=== PATIENT | male | born 1965 | race Caucasian/White ===

== ENCOUNTER 2019-07-12 14:43 | Inpatient (IN) | payer OTHER ==
[2019-07-12] MEDS ORDERED: DIAZEPAM 5 MG/ML 2 ML INJ IVP STA (15:35)
[2019-07-12] MEDS ORDERED: SODIUM CHLORIDE 0.9% 1,000 ML IV STA (15:35)
[2019-07-12 15:59] LABS: Basophils % (A) 0 %; Eosinophils % (A) 1 %; HCT 43.5 % (39.0-53.0); HGB 14.9 gm/dL (13.0-17.5); Lymphocytes # (A) 0.9 k/uL (1.0-4.8); Lymphocytes % (A) 20 %; MCH 33.6 pg (25.0-35.0); MCHC 34.4 g/dL (31.0-37.0); MCV 97.9 fL (80.0-100.0); Mean Platelet Volume 7.8; Monocytes # (A) 0.3 k/uL (0-1.0); Monocytes % (A) 6 %; Neutrophils # (A) 3.3 k/uL (1.3-7.7); Neutrophils % (A) 71 %; RBC 4.44 m/uL (4.30-5.90); RDW 12.7 % (11.5-15.5); WBC 4.6 k/uL (3.8-10.6)
--- NOTE | 2019-07-12 16:02 | ED ---
General Adult HPI - General Chief complaint: Psychiatric Symptoms Stated complaint: Drank 6 oz of rubbing alcohol Time Seen by Provider: 07/12/19 15:08 Source: patient Mode of arrival: wheelchair Limitations: no limitations - History of Present Illness Initial comments: Patient is a 53-year-old male presenting to the emergency department accompanied by his for alcohol withdrawal-type symptoms. states she is wanting to petition him. Patient has been detoxing from alcohol for the past few days and does have a prescription for Librium. Patient's states she gave him a tablet this morning but found the patient in the closet 3 different times today drinking rubbing alcohol. Patient states he drank about 2 ounces of rubbing alcohol. Patient denies having suicidal thoughts however is afraid that if he goes home he will drink himself to . Patient is complaining of nausea and shaking. Patient doesn't want to talk a whole lot. There are no other complaints at this time. Patient has no other pertinent past medical history, no surgeries. On arrival to the ER, patient is tachycardia at 134, rest of vitals are normal. - Related Data Home Medications Medication Instructions Recorded Confirmed Selvin/Mag(Unknown Dose) 0.5 tab PO DAILY 07/12/19 07/12/19 Vitamin B Complex 1 cap PO DAILY 07/12/19 07/12/19 Vitamin D3(Unknown Dose) 1 tab PO DAILY 07/12/19 07/12/19 Allergies Allergy/AdvReac Type Severity Reaction Status Date / Time No Known Allergies Allergy Verified 07/12/19 19:00 Review of Systems ROS Statement: Those systems with pertinent positive or pertinent negative responses have been documented in the HPI. ROS Other: All systems not noted in ROS Statement are negative. Past Medical History Past Medical History: No Reported History History of Any Multi-Drug Resistant Organisms: None Reported Past Surgical History: No Surgical Hx Reported Past Psychological History: No Psychological Hx Reported Smoking Status: Current every day smoker Past Alcohol Use History: Abuse, Daily, Heavy Past Drug Use History: None Reported - Past Family History Father Family Medical History: No Reported History Mother Family Medical History: No Reported History General Exam - General Exam Comments Initial Comments: GENERAL: Patient appears slightly disheveled, eyes are closed, mild tremors. Answering questions. HEAD: Atraumatic, normocephalic. EYES: Pupils equal round and reactive to light, extraocular movements intact, sclera anicteric, conjunctiva are normal. ENT: Nares patent, oropharynx clear without exudates. Moist mucous membranes. NECK: Normal range of motion, supple without lymphadenopathy or JVD. LUNGS: Breath sounds clear to auscultation bilaterally and equal. No wheezes rales or rhonchi. HEART: Tachycardia rate and rhythm without murmurs, rubs or gallops. ABDOMEN: Soft, nontender, normoactive bowel sounds. No guarding, no rebound. No masses appreciated. : Deferred EXTREMITIES: Normal range of motion, no pitting or edema. No clubbing or cyanosis. NEUROLOGICAL: Cranial nerves II through XII grossly intact. Patient is alert, oriented to self and place. Believes it's 2009. PSYCH: Flat affect SKIN: Warm, Dry, normal turgor, no rashes or lesions noted. Limitations: no limitations Course Vital Signs 07/12/19 07/12/19 07/12/19 15:02 15:42 16:00 Temperature 97.8 F Pulse Rate 134 H 115 H Respiratory 22 18 18 Rate Blood Pressure 126/82 130/74 O2 Sat by Pulse 97 95 94 L Oximetry 07/12/19 07/12/19 16:30 19:02 Temperature Pulse Rate 115 H 112 H Respiratory 18 20 Rate Blood Pressure 127/75 139/82 O2 Sat by Pulse 97 Oximetry EKG Findings - EKG Comments: EKG Findings:: Ventricular rate 112, OR interval 128, QTC 502. Sinus tach, right BBB, abnormal EKG. Medical Decision Making - Medical Decision Making Patient is a 53-year-old male presenting with alcoholic withdrawal symptoms. is wanting him to be petitioned. Patient has mild tremors, slightly tachycardia upon arrival. Lab work shows no acute abnormalities. Liver enzymes are slightly elevated. Alcohol is 12. Initial BAT was normal. Patient is alert, oriented to self and place however believes it is 2009. Patient will be admitted for alcohol withdrawal. Patient except by Dr. Feldman. Case discussed with Dr. Webb. - Lab Data Result diagrams: 07/12/19 15:52 07/12/19 15:52 Disposition Clinical Impression: Alcohol withdrawal delirium Disposition: ADMITTED IP TO THIS HOSP Condition: Good Is patient prescribed a controlled substance at d/c from ED?: No Decision Date: 07/12/19 Decision Time: 17:46
[2019-07-12 16:12] LABS: ALT 148 U/L (21-72); AST 174 U/L (17-59); African American GFR (CKD) >90 (>60 ml/min/1.73 sqM); Albumin 4.4 g/dL (3.5-5.0); Alcohol 12 mg/dL; Alkaline Phosphatase 73 U/L (38-126); Amylase 42 U/L (30-110); Anion Gap 10 mmol/L; Blood Urea Nitrogen 9 mg/dL (9-20); Calcium 9.2 mg/dL (8.4-10.2); Carbon Dioxide 29 mmol/L (22-30); Chloride 100 mmol/L (98-107); Glucose 171 mg/dL (74-99); Magnesium 1.5 mg/dL (1.6-2.3); Non-African American GFR(CKD) >90 (>60 ml/min/1.73 sqM); Potassium 3.2 mmol/L (3.5-5.1); Sodium 139 mmol/L (137-145); Total Bilirubin 0.8 mg/dL (0.2-1.3); Total Protein 6.6 g/dL (6.3-8.2)
[2019-07-12] MEDS ORDERED: LORazepam 2 MG/ML INJ IV STA (16:42)
[2019-07-12 16:49] LABS: Platelet Count 90 k/uL (150-450)
[2019-07-12] MEDS ORDERED: THIAMINE 100 MG TAB PO SCH (17:30)
[2019-07-12] MEDS ORDERED: THIAMINE 100 MG/ML 2 ML VIAL IM STA (17:46)
[2019-07-12] MEDS ORDERED: LORazepam 2 MG/ML INJ IV PRN ×2 (17:46)
[2019-07-12] MEDS ORDERED: NALOXONE 0.4 MG/ML 1 ML VIAL IV PRN (17:48)
[2019-07-12] MEDS ORDERED: ACETAMINOPHEN TAB 325 MG TAB PO PRN (17:48)
[2019-07-12 18:33] LABS: Amphetamine Screen,Urine Not Detected (NotDetected); Barbiturate Screen,Urine Not Detected (NotDetected); Benzodiazepines Screen,Urine Not Detected (NotDetected); Cocaine Screen,Urine Not Detected (NotDetected); Methadone Screen, Urine Not Detected (NotDetected); Opiate Screen,Urine Not Detected (NotDetected); Oxycodone Screen, Urine Not Detected (NotDetected); Phencyclidine Screen,Urine Not Detected (NotDetected); Tricyclic Antidepressant,Urine Not Detected (NotDetected); Urn Cannabinoid Scrn Not Detected (NotDetected)
[2019-07-12] MEDS: LORazepam 2 MG/ML INJ IV PRN (18:59)
[2019-07-12] MEDS: SODIUM CHLORIDE 0.9% 1,000 ML IV SCH (19:03)
[2019-07-12] MEDS ORDERED: MELATONIN 3 MG TABLET PO PRN (19:45)
[2019-07-12] MEDS ORDERED: traMADol 50 MG TAB PO PRN (19:45)
--- NOTE | 2019-07-12 19:50 | P.HPIM ---
History of Present Illness H&P Date: 07/12/19 Chief Complaint: intoxication Patient is a 53-year-old male with a past medical history of significant alcohol abuse and drinking approximately 1 pint in 2 beers daily, tobacco abuse, and depression who presented to the emergency department at the direction that his secondary to alcohol withdrawal possible suicidal ideation. Apparently the filled out a petition in the ER she feels he will drink himself to if he is released. She also reported that the patient was found in his closet drinking isopropyl alcohol today. On arrival to the ER he was tachycardic with a pulse of 134. Laboratory analysis showed a platelet count of 90, potassium 3.2, anion gap of 10, carbon dioxide 29, AST 178, ALP 148, and magnesium 1.5. Serum alcohol level was normal at 12. He was found to be in acute alcohol withdrawal. He was given a dose of Valium and to 1 mg doses of Ativan. He was admitted for further monitoring of his alcohol withdrawal with impending delirium tremens. Patient seen and examined at bedside in the emergency department. He is asking to go home. He states that he was recently at [facility] and started having alcohol withdrawal. He reports he received IV Ativan and then was discharged home on Librium. He states he used LIBRIUM. He continued to have some alcohol withdrawal with nausea, tremors, sweating, and agitation. His brought him in today after apparently he was drinking isopropyl alcohol. He reports that he drinks approximately 2 ounces isopropyl alcohol. He states it was try to help with his alcohol withdrawal denies suicidal ideation or significant depression at this point in time. However patient has a hard time focusing and is constantly thrashing about in bed. He does not appear to be a reliable historian. I explained to him why I though he needed to stay for wrosening alcohol withdrawal and concerns for developement of cardiovascular compromise he first agreed.THne 1 minute later he was trying to get out of bed looking for his and stating he was going home. Review of Systems Pertinent positives and negatives as discussed in HPI, a complete review of systems was performed and all other systems are negative. 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 - Past Family History Father Family Medical History: No Reported History Mother Family Medical History: No Reported History Medications and Allergies Home Medications Medication Instructions Recorded Confirmed Type Selvin/Mag(Unknown Dose) 0.5 tab PO DAILY 07/12/19 07/12/19 History Vitamin B Complex 1 cap PO DAILY 07/12/19 07/12/19 History Vitamin D3(Unknown Dose) 1 tab PO DAILY 07/12/19 07/12/19 History Allergies Allergy/AdvReac Type Severity Reaction Status Date / Time No Known Allergies Allergy Verified 07/12/19 19:00 Physical Exam Osteopathic Statement: *. No significant issues noted on an osteopathic structural exam other than those noted in the History and Physical/Consult. Vitals: Vital Signs Temp Pulse Resp BP Pulse Ox 07/12/19 19:02 112 H 20 139/82 97 07/12/19 16:30 115 H 18 127/75 07/12/19 16:00 115 H 18 130/74 94 L 07/12/19 15:42 18 95 07/12/19 15:02 97.8 F 134 H 22 126/82 97 Intake and Output 07/12/19 07/12/19 07/12/19 06:59 14:59 22:59 Other: Weight 74.843 kg General: Ill-appearing, moderate distress, disheveled, appears at stated age, normal weight Derm: no unusual rashes/lesions no unusual ecchymoses, warm, dry Head: atraumatic, normocephalic, symmetric Eyes: EOMI, no lid lag, anicteric sclera, pupils equal round reactive to light ENT: Nose and ears atraumatic, no thrush, no pharyngeal erythema Neck: No thyromegaly, no cervical lymphadenopathy, trachea midline, supple Mouth: no lip lesion, mucus membranes dry Cardiovascular: S1S2 tachy, no murmur, positive posterior tibial pulse bilateral, no edema, capillary refill less than 2 seconds Lungs: Decreased bs bilateral, no rhonchi, no rales , no accessory muscle use Abdominal: soft, nontender to palpation, no guarding, no appreciable organomegaly, normal bowel sounds Ext: no gross muscle atrophy, muscle strength 5 out of 5 in all 4 extremities grossly, no contractures, Neuro: CN II-XI grossly intact, light touch intact all 4 extremities, finger to nose within normal limits, Psych: Alert, oriented, anxious, not clear thinking Results CBC & Chem 7: 07/12/19 15:52 07/12/19 15:52 Labs: Abnormal Lab Results - Last 24 Hours (Table) 07/12/19 07/12/19 07/12/19 Range/Units 15:52 15:52 15:52 Plt Count 90 L (150-450) k/uL Lymphocytes # 0.9 L (1.0-4.8) k/uL Potassium 3.2 L (3.5-5.1) mmol/L Glucose 171 H (74-99) mg/dL Osmolality 342 H* (280-301) mosm/kg Magnesium 1.5 L (1.6-2.3) mg/dL AST 174 H (17-59) U/L ALT 148 H (21-72) U/L Thrombosis Risk Factor Assmnt - DVT/VTE Prophylaxis DVT/VTE Prophylaxis: Mechanical Prophylaxis ordered Assessment and Plan Assessment: Acute isopropyl alcohol ingestion - IVF - PPI - Osmolar gap 50 - frequent neurochecks - asked nursing to open case with poison control Acute Alcohol withdrawal with impending DTs, Failed outpatient treatment - CIWA, thiamine, foliac acid - Social work consult Suicidal ideation - Sitter - Psych consult Transaminitis with thrombocytopenia - suspect due to ETOH use - Repeat CMP in AM - If continues to elevated will proceed with US/ Hepatitis profile Hypokalemia and hypomagnesemia - replace and recheck in AM Tobacco abuse - cessation - nicotine replacement The patient is admitted with an anticipated greater than 2 midnight stay for evaluation of isopropyl ingestion. Surrogate decision-maker: CODE STATUS:not clear enough thinking to make a decision DVT prophylaxis: SCDS Discussed with: Patient, ED physician, nursing Anticipated discharge date: 1-[address]: MHU vs home vs rehab A total of 60 minutes was spent on the care of this complex patient more than 50% of the time was spent in counseling and care coordination.
[2019-07-12] MEDS: PANTOPRAZOLE 40 MG/10 ML VIAL IVP SCH (21:41)
[2019-07-12] MEDS: MAGNESIUM SULFATE-D5W PMX 1 GM in DEXTROSE/WATER 1 100ML.BAG IVPB SCH ×2 (21:41→23:47)
[2019-07-12] MEDS: POTASSIUM CHLORIDE 10 MEQ in WATER FOR INJECTION 1 100ML.BAG IVPB SCH ×2 (21:42→23:48)
[2019-07-12 22:18] LABS: Acetaminophen <10.0 ug/mL; Salicylate <1.0 mg/dL
[2019-07-13] MEDS: MAGNESIUM SULFATE-D5W PMX 1 GM in DEXTROSE/WATER 1 100ML.BAG IVPB SCH ×2 (00:55→02:04)
[2019-07-13] MEDS: POTASSIUM CHLORIDE 10 MEQ in WATER FOR INJECTION 1 100ML.BAG IVPB SCH ×2 (00:56→02:04)
[2019-07-13] MEDS: LORazepam 2 MG/ML INJ IV PRN (02:08)
[2019-07-13] MEDS: THIAMINE 100 MG TAB PO SCH ×2 (06:24→17:25)
[2019-07-13 07:52] LABS: HGB 14.3 gm/dL (13.0-17.5); MCH 34.5 pg (25.0-35.0); MCHC 34.8 g/dL (31.0-37.0); MCV 99.1 fL (80.0-100.0); Mean Platelet Volume 6.9; RBC 4.14 m/uL (4.30-5.90); RDW 12.8 % (11.5-15.5)
[2019-07-13 07:58] LABS: Platelet Count 96 k/uL (150-450)
[2019-07-13 08:01] LABS: ALT 123 U/L (21-72); AST 115 U/L (17-59); African American GFR (CKD) >90 (>60 ml/min/1.73 sqM); Albumin 3.8 g/dL (3.5-5.0); Alkaline Phosphatase 55 U/L (38-126); Anion Gap 7 mmol/L; Blood Urea Nitrogen 4 mg/dL (9-20); Calcium 8.1 mg/dL (8.4-10.2); Carbon Dioxide 27 mmol/L (22-30); Chloride 106 mmol/L (98-107); Glucose 114 mg/dL (74-99); Magnesium 2.4 mg/dL (1.6-2.3); Non-African American GFR(CKD) >90 (>60 ml/min/1.73 sqM); Potassium 3.6 mmol/L (3.5-5.1); Sodium 140 mmol/L (137-145); Total Bilirubin 0.8 mg/dL (0.2-1.3); Total Protein 6.3 g/dL (6.3-8.2)
[2019-07-13] MEDS: PANTOPRAZOLE 40 MG/10 ML VIAL IVP SCH (08:25)
[2019-07-13] MEDS: SODIUM CHLORIDE 0.9% 1,000 ML IV SCH ×2 (08:25→17:25)
[2019-07-13] MEDS ORDERED: NICOTINE 21MG/24HR PATCH TRANSDERM SCH (09:00)
--- NOTE | 2019-07-13 09:11 | P.PN ---
Progress Note - Text Progress Note Date: 07/13/19 If no additional doses of IV Ativan required before this afternoon will be medically stable for discharge.
[2019-07-13 14:52] LABS: Amylase 39 U/L (30-110)
--- NOTE | 2019-07-13 15:45 | P.CN ---
Psychiatric Consult - . Consult date: 07/13/19 Consult:: IDENTIFYING DATA: The patient is a 54-year-old male who has a history of an alcohol use disorder. He is currently unemployed, has no income and is living at his ex-'s home HISTORY OF PRESENT ILLNESS: He stated that his brought him to the hospital. She completed a petition that read "statement I just want to and others. Drinking rubbing alcohol." I reviewed the medical record and interviewed the patient. He admitted that he had relapsed to alcohol and during an argument with "his " he made the statement that he wanted to . However, he denied that he made a statement with the intent to end his life. He specifically denied having suicidal ideation, plan or intent. He was distressed by his continued alcohol use and the fact that he lost his most recent job because he was intoxicated at work. He feels depressed and helpless over his continued alcohol use. He feels worthless because he is unable to maintain gainful employment due to his alcohol use problems. He denied feeling hopeless. He denied sustained feelings depression associated with anhedonia, anergy, pervasive guilt, etc. He denied history of suicide attempts or gestures. He denied history of self-harm. I spoke with his ex-. She was very frustrated over this situation. She stated he has a history of alcoholism and relapsed 3 weeks ago. They were 2 years ago but because he has no income and no where else to live he has been living with her except for a period of about 9 months last year when he is in a residential alcohol rehabilitation program in [facility]. 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 The police brought him home about 2 weeks ago from work because his blood alcohol level was 0.27. His has been in multiple rehabilitation program and currently has a counselor at the [facility] outpatient [facility] in [place]. She has been urging him to return to [facility] for residential rehabilitation but he had so far refused. Last week he went to [facility] and obtained a prescription for Librium for an outpatient detox. She meanwhile solicit the assistance of his substance abuse counselor and the mobile crisis team. She arranged to get him admitted to [facility] on 07/16/2019. Yesterday during an argument he made the statement that he wished that he would . She came home yesterday and found that he had been drinking rubbing alcohol. She called his counselor and arrange for a emergency admission to [facility] yesterday at 2 PM. She stated that he was denied admission because of his medical condition and referred here for medical care. PAST PSYCHIATRIC HISTORY: He denied history of psychiatric treatment or admission to psychiatric hospital.. PAST MEDICAL HISTORY: None. ALLERGIES: No known ALLERGIES. SUBSTANCE USE HISTORY: He has over 20 year history of alcohol use problems with multiple substance abuse admissions. He estimates that he has attempted at least 500 NA and AA meetings in his lifetime. He has had 6 admissions to [facility]. He has a counselor at the [facility] outpatient clinic. He meets with his counselor 2-3 times per week. He denied history of withdrawal delirium or withdrawal seizures. SOCIAL HISTORY: He is currently homeless because his does not want him to return to her home. He has no income. He alleges one DUI citation. 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 MENTAL STATUS EXAM: He presented as a middle-aged tremulous male who had difficulty concentrating and attending to the interview. He was tremulous and irritable. He had a distressed facial expression. He was alert and oriented to person, place and time. He was restless but not agitated. His speech was nonspontaneous. He showed difficulty with word finding and concentrating on the interview. He was anxious and moderately irritable. He denied suicidal ideation, wishes or homicidal ideation. He expressed some feelings of hopelessness and helplessness. He ruminated about the circumstances that led to this hospitalization. Did not express ideas reference, paranoid ideation or delusions. His thinking was concrete and he showed poverty of content of speech. He perseverated on his alcohol use problems. He denied hallucinations and did not appear to be responding to internal stimuli. IMPRESSIONS: He is a 54-year-old male with a history of a severe alcohol use disorder. He presented to Hospital at the behest of his ex- because he relapsed to alcohol about 3 weeks ago. As a result of the relapse he is lost his job and cannot return to her home. She became distressed when he refused to go to residential rehabilitation and began making statements about dying. During our interview he was in apparent alcohol withdrawal and expressed frustration and helplessness over his alcohol use. He denied that he made the suicidal statements with the intent to end his life. He denied cartwright icidal plan or intent and denied a history of suicide attempts. He does not meet judicial criteria for admission to the psychiatric unit at this time. He should be referred for residential substance abuse treatment PLAN: He does not require inpatient psychiatric treatment. Discontinue one-to-one supervision. Monitor patient for signs and symptoms of withdrawal delirium. Consult social work to refer him to [facility] for residential substance abuse treatment.. 07/13/19 15:39 07/13/19 15:40
[2019-07-13] MEDS ORDERED: NICOTINE POLACRILEX 2 MG GUM BUCCAL PRN (16:21)
--- NOTE | 2019-07-13 19:56 | P.PN ---
Subjective Progress Note Date: 07/13/19 Principal diagnosis: intoxication Patient is a 53-year-old male with a past medical history of significant alcohol abuse and drinking approximately 1 pint in 2 beers daily, tobacco abuse, and depression who presented to the emergency department at the direction that his secondary to alcohol withdrawal possible suicidal ideation. Apparently the filled out a petition in the ER she feels he will drink himself to if he is released. She also reported that the patient was found in his closet drinking isopropyl alcohol today. On arrival to the ER he was tachycardic with a pulse of 134. Laboratory analysis showed a platelet count of 90, potassium 3.2, anion gap of 10, carbon dioxide 29, AST 178, ALP 148, and magnesium 1.5. Serum alcohol level was normal at 12. He was found to be in acute alcohol withdrawal. He was given a dose of Valium and to 1 mg doses of Ativan. He was admitted for further monitoring of his alcohol withdrawal w ith impending delirium tremens. He was found to have an osmolar gap secondary to his isopropyl alcohol intoxication. History of treated with supportive care. On the morning of 07/13 he is much more awake and alert and not tremulous. He was seen by psychiatry and determined not to require inpatient psychiatric hospitalization. He continued to have symptoms of alcohol withdrawal. Apparently he has been living with his ex- who states he cannot come back in the house after discharge. Patient seen and examined at bedside. He denies any headaches, nausea, vomiting, abdominal pain, or tremors. Patient is alert and oriented 3 but still shows impulsive behaviors. After we discussed him continuing to stay in the hospital he tries to get out of bed and leave. He wants have a cigarette but refuses nicotine patch or gum. Objective - Vital Signs Vital signs: Vital Signs Temp 98.3 F 07/13/19 08:00 Pulse 99 07/13/19 16:00 Resp 16 07/13/19 04:00 BP 133/76 07/13/19 16:00 Pulse Ox 95 07/13/19 16:00 Intake & Output 07/13/19 07/13/19 07/14/19 06:59 18:59 06:59 Weight 74.843 kg Other: Voiding Method Toilet # Voids 1 2 - Exam General: non toxic, no distress, appears at stated age, disheveled Derm: warm, dry Head: atraumatic, normocephalic, symmetric Eyes: EOMI, no lid lag, anicteric sclera Mouth: no lip lesion, mucus membranes moist, poor dentition Cardiovascular: S1S2 reg, no murmur, positive posterior tibial pulse bilateral, Lungs: CTA bilateral, no rhonchi, no rales , no accessory muscle use Abdominal: soft, nontender to palpation, no guarding, no appreciable organomegaly Ext: no gross muscle atrophy, no edema, no contractures Neuro: CN II-XI grossly intact, no focal neuro deficits Psych: Alert, oriented, impulsive, unable to retain information presented to him accurately - Labs CBC & Chem 7: 07/13/19 06:38 12 06:38 Labs: Abnormal Lab Results - Last 24 Hours (Table) 07/13/19 07/13/19 Range/Units 06:38 06:38 RBC 4.14 L (4.30-5.90) m/uL Plt Count 96 L (150-450) k/uL BUN 4 L (9-20) mg/dL Glucose 114 H (74-99) mg/dL Calcium 8.1 L (8.4-10.2) mg/dL Magnesium 2.4 H (1.6-2.3) mg/dL AST 115 H (17-59) U/L ALT 123 H (21-72) U/L Assessment and Plan Assessment: Acute Alcohol withdrawal with impending DTs, Failed outpatient treatment - CIWA, thiamine, foliac acid - Social work recs. Attempted to discharge to inpatient substance abuse. Acute isopropyl alcohol ingestion, improving Transaminitis with thrombocytopenia, improving - suspect due to ETOH use - Repeat CMP in AM Tobacco abuse - cessation - nicotine replacement Social stressors -Per social work patient is actually living with his ex-. Has been unable to keep her job. Ex- will not allow him back in the house. We'll either need to go to the long-term or inpatient substance abuse rehab. Suicidal ideation, ruled out by psychiatry and deemed no need for safety council director. Hypokalemia and hypomagnesemia, resolved DVT prophylaxis: SCDS Discussed with: Patient, Social work, nursing Anticipated discharge date: 1-[address]: home vs rehab A total of 60 minutes was spent on the care of this complex patient more than 50% of the time was spent in counseling and care coordination. `
[2019-07-13 20:10] VITALS: RESP 18
[2019-07-14 06:30] VITALS: TEMP 96
[2019-07-14] MEDS: THIAMINE 100 MG TAB PO SCH (06:32)
[2019-07-14] MEDS: SODIUM CHLORIDE 0.9% 1,000 ML IV SCH ×2 (06:32→12:18)
[2019-07-14 06:42] LABS: HCT 39.7 % (39.0-53.0); HGB 13.4 gm/dL (13.0-17.5); MCH 34.2 pg (25.0-35.0); MCHC 33.8 g/dL (31.0-37.0); MCV 101.2 fL (80.0-100.0); Mean Platelet Volume 8.4; RBC 3.92 m/uL (4.30-5.90); RDW 12.8 % (11.5-15.5); WBC 4.2 k/uL (3.8-10.6)
[2019-07-14 06:46] LABS: Platelet Count 79 k/uL (150-450)
[2019-07-14 06:53] LABS: ALT 100 U/L (21-72); AST 88 U/L (17-59); African American GFR (CKD) >90 (>60 ml/min/1.73 sqM); Albumin 3.4 g/dL (3.5-5.0); Alkaline Phosphatase 42 U/L (38-126); Anion Gap 5 mmol/L; Blood Urea Nitrogen 3 mg/dL (9-20); Calcium 8.6 mg/dL (8.4-10.2); Carbon Dioxide 26 mmol/L (22-30); Chloride 109 mmol/L (98-107); Glucose 115 mg/dL (74-99); Non-African American GFR(CKD) >90 (>60 ml/min/1.73 sqM); Potassium 4.4 mmol/L (3.5-5.1); Sodium 140 mmol/L (137-145); Total Bilirubin 0.8 mg/dL (0.2-1.3); Total Protein 5.6 g/dL (6.3-8.2)
[2019-07-14] MEDS ORDERED: PANTOPRAZOLE 40 MG TABLET PO SCH (09:00)
[2019-07-14 11:04] VITALS: BP 134/86; PULSE 76
--- NOTE | 2019-07-14 17:50 | P.DS ---
Providers Date of admission: 07/12/19 15:07 Expected date of discharge: 07/14/19 Attending physician: Shannon Latham DO Consults: 07/12/19 19:47 Consult Physician Routine Consulting Provider: Mik Jessica Reason/Comments: Suicidal intent Do you want consulting provider notified?: Yes Primary care physician: [facility] Course: Discharge Diagnosis: Acute Alcohol withdrawal with impending DTs, Failed outpatient treatment Acute isopropyl alcohol ingestion Transaminitis with thrombocytopenia, improving Tobacco abuse Social stressors Suicidal ideation, ruled out by psychiatry Hypokalemia and hypomagnesemia, resolved Hospital Course: Patient is a 53-year-old male with a past medical history of significant alcohol abuse and drinking approximately 1 pint in 2 beers daily, tobacco abuse, and depression [facility] secondary to alcohol withdrawal possible suicidal ideation. Apparently the filled out a petition in the ER she feels he will drink himself to if he is released. She also reported that the patient was found in his closet drinking isopropyl alcohol today. On arrival to the ER he was tachycardic with a pulse of 134. Laboratory analysis showed a platelet count of 90, potassium 3.2, anion gap of 10, carbon dioxide 29, AST 178, ALP 148, and magnesium 1.5. Serum alcohol level was normal at 12. He was found to be in acute alcohol withdrawal. He was given a dose of Valium and 2, 1 mg doses of Ativan. He was admitted for further monitoring of his alcohol withdrawal with impending delirium tremens. He was found to have an osmolar gap secondary to his isopropyl alcohol ingestion. He did well with supportive treatment. On the morning of 07/13 he is much more awake and alert and not tremulous. He was seen by psychiatry and determined not to require inpatient psychiatric hospitalization. He continued to have symptoms of alcohol withdrawal. He did well with Librium therapy alone for 24 hours. He was determined stable for discharge from the hospital for complete inpatient alcohol rehabilitation. This will be determined facility in [place]. He was subsequently discharged home, his ex- will be taking him to a facility in [place]. Patient seen and examined at bedside. Vital signs reviewed and stable. General: non toxic, no distress, appears at stated age Derm: warm, dry Head: atraumatic, normocephalic, symmetric Eyes: EOMI, no lid lag, anicteric sclera Mouth: no lip lesion, mucus membranes moist Cardiovascular: S1S2 reg, no murmur, positive posterior tibial pulse bilateral, Lungs: CTA bilateral, no rhonchi, no rales , no accessory muscle use Abdominal: soft, nontender to palpation, no guarding, no appreciable organomegaly Ext: no gross muscle atrophy, no edema, no contractures Neuro: CN II-XI grossly intact, no focal neuro deficits Psych: Alert, oriented,anxious A total of 35 minutes of time were spent preparing this complex discharge summary . Patient Condition at Discharge: Stable Plan - Discharge Summary Discharge Rx Participant: No New Discharge Prescriptions: New chlordiazePOXIDE HCl [Librium] 20 mg PO TID cap Pantoprazole [Protonix] 40 mg PO DAILY #30 tablet. Thiamine [Vitamin B-1] 100 mg PO BID-W/MEALS #60 tab Continue Vitamin B Complex 1 cap PO DAILY Discontinued Vitamin D3(Unknown Dose) 1 tab PO DAILY Selvin/Mag(Unknown Dose) 0.5 tab PO DAILY Discharge Medication List Vitamin B Complex 1 cap PO DAILY 07/12/19 [History] Pantoprazole [Protonix] 40 mg PO DAILY #30 tablet. 07/14/19 [Rx] Thiamine [Vitamin B-1] 100 mg PO BID-W/MEALS #60 tab 07/14/19 [Rx] chlordiazePOXIDE HCl [Librium] 20 mg PO TID cap 07/14/19 [Rx] Follow up Appointment(s)/Referral(s): [facility] - 07/25/19 5:30 pm (WednesdayJuly 25 at 5:30) Patient Instructions/Handouts: Abuse of Alcohol (DC) Activity/Diet/Wound Care/Special Instructions: Activity: as tolerated Diet: regular Special Instructions: Abstain from Alcohol Discharge Disposition: DC/TRNS REHB FAC/UNT W/PND R
--- NOTE | 2019-07-19 07:32 | CDI ---
Documentation Clarification Form Date: 07/19/19 From: Elena Matos Phone: If you have a question about this query, please contact Concetta Mejias, Cant Hooker at [phone] between 8am and 5pm. Admit Date: 07/12/19 Discharge Date: 07/14/19 Patient Name: Salvatore Langley Visit Number: [id number] ATTENTION: The Clinical Documentation Specialists (CDI) and [facility] Coding Staff appreciate your assistance in clarifying documentation. Please respond to the clarification below the line at the bottom and electronically sign. The CDI & [facility] Coding staff will review the response and follow-up if needed. Please note: Queries are made part of the Legal Health Record. If you have any questions, please contact the author of this message via ITS. Dear Dr. Shannon Latham Documentation and the location in the medical record included alcohol withdrawal with impending DTs documented in the ED note, H&P, discharge summary and progress notes. History of alcohol abuse is documented in the H&P, your progress note on 07/13 and in the discharge summary. History/Risk Factors: Heavy, daily alcohol use Clinical Indicators: Mild tremors, slightly tachycardic, nausea, sweating, agitation, depression, suicidal Labs: AST 174, ALT 148, Potassium 3.2, Magnesium 1.5, Platelets 90, Blood alcohol 12 Treatment: CIWA protocol, Thiamine IM and PO In your professional opinion, can you please clarify if the above clinical indicators and treatment signify any of the following? Alcohol dependence Alcohol abuse Other, please specify Unable to determine Alcohol abuse MTDD
== END 2019-07-14 12:42 | disposition home or self-care (01) | DRG 897 ==
LOC: EC 14:43 → SUPCPDRO 14:43 → 3SCARD 15:07
PROVIDERS: ADMIT Internal Medicine; ATTEND Internal Medicine
DX: F10.10 Alcohol abuse, uncomplicated (principal); D69.6 Thrombocytopenia, unspecified; E83.42 Hypomagnesemia; E87.6 Hypokalemia; F17.200 Nicotine dependence, unspecified, uncomplicated; F32.9 Major depressive disorder, single episode, unspecified; R74.0 Nonspecific elevation of levels of transaminase and lactic acid dehydrogenase [LDH]; R45.87 Impulsiveness; Y90.0 Blood alcohol level of less than 20 mg/100 ml
CPT/HCPCS: 36415; 80053; 80306; 80320; 80329; 82075; 82150; 83520; 83690; 83735; 83930; 85025; 85027; 93005; 96361; 96372; 96374; 96375; 96376; 99285

== ENCOUNTER → 2020-09-17 | Outpatient (CLI) | payer OTHER | END | disposition home or self-care (01) | LOC: LABPAT 11:20 | PROVIDERS: ATTEND Surgery | DX: Z20.822 Contact with and (suspected) exposure to COVID-19 (principal) ==

== ENCOUNTER 2020-09-24 07:14 | Day surgery (SDC) | payer OTHER ==
[2020-09-20 11:55] VITALS: BMI 24.3
[~2020-09-24 07:14] MED LIST: DEXAMETHASONE SOD PHOSPHATE 4 MG/ML 1 ML VIAL IV ONE; HEPARIN SODIUM,PORCINE 5,000 UNIT/ML 1 ML VIAL SQ PRN; HYDROmorphone 0.5 MG/0.5 ML SYRINGE IVP PRN; LACTATED RINGERS 1,000 ML IV SCH; LIDOCAINE 1% (10MG/ML) FOR IV START INTRADERMA PRN; MIDAZOLAM 2 MG/2 ML VIAL IV PRN; ONDANSETRON 4 MG/2 ML VIAL IVP ONE; fentaNYL (PF) 50 MCG/ML 2 ML AMP IV PRN
[2020-09-24 07:49] VITALS: TEMP 98.5
[2020-09-24 08:11] LABS: HCT 38.8 % (39.0-53.0); HGB 13.5 gm/dL (13.0-17.5); MCH 34.4 pg (25.0-35.0); MCHC 34.7 g/dL (31.0-37.0); MCV 99.1 fL (80.0-100.0); Mean Platelet Volume 8.1; Platelet Count 132 k/uL (150-450); RBC 3.92 m/uL (4.30-5.90); RDW 12.6 % (11.5-15.5); WBC 6.9 k/uL (3.8-10.6)
[2020-09-24] MEDS ORDERED: NEOSTIGMINE 1 MG/ML 10 ML VIAL ONE (08:56)
[2020-09-24] MEDS ORDERED: DEXAMETHASONE SOD PHOSPHATE 10 MG/ML 1 ML VIAL ONE (08:56)
[2020-09-24] MEDS ORDERED: PROPOFOL 10 MG/ML 20 ML VIAL IV ONE (08:56)
[2020-09-24] MEDS ORDERED: MIDAZOLAM 2 MG/2 ML VIAL ONE (08:56)
[2020-09-24] MEDS ORDERED: ROCURONIUM 10 MG/ML (5 ML VIAL) IV ONE (08:56)
[2020-09-24] MEDS ORDERED: GLYCOPYRROLATE 0.2 MG/ML 2 ML VIAL ONE (08:56)
[2020-09-24] MEDS ORDERED: SUCCINYLCHOLINE CHLORIDE 100 MG/5 ML SYR IV ONE (08:56)
[2020-09-24] MEDS ORDERED: ROPIVACAINE 5 MG/ML 30 ML VIAL ONE (08:56)
[2020-09-24] MEDS ORDERED: fentaNYL (PF) 50 MCG/ML 2 ML AMP ONE (08:56)
[2020-09-24] MEDS ORDERED: LIDOCAINE 1% INJ 10MG/ML (20 ML MDV) ONE (08:56)
[2020-09-24] MEDS ORDERED: LIDOCAINE 1%-EPI 1:100,000 20 ML VIAL SQ ONE ×2 (10:29)
[2020-09-24] MEDS ORDERED: LACTATED RINGERS 1,000 ML IV ONE (11:13)
--- NOTE | 2020-09-24 11:36 | P.OP ---
Date of Procedure: 09/24/20 Preoperative Diagnosis: Right inguinal hernia Postoperative Diagnosis: Bilateral inguinal hernia, direct Procedure(s) Performed: Robotic bilateral inguinal hernia repair with mesh placement Anesthesia: ANU Surgeon: Pierre Roth Pathology: none sent Condition: stable Disposition: same day Indications for Procedure: 54-year-old male presents today for elective right inguinal hernia repair. He is noted to have some discomfort in the right groin that led him to seek surgical repair. Plan was for possible bilateral based on findings from the scope. Patient was explained the risks, benefits and alternatives to the procedure and did provide consent prior to attending the operating suite. Operative Findings: Bilateral direct inguinal hernia Description of Procedure: The patient was brought to the operating suite and placed in supine position on the operating table. General endotracheal anesthesia was induced. There was difficulty placing the endotracheal tube, however anesthesia was able to place this under direct camera guidance. Arms were then tacked to the sides bilaterally and all pressure points were padded. SCDs were also in place in his bilateral lower extremities and working throughout the entire case. Preoperative antibiotics were given prior to the incision. A timeout was performed with all team members in agreement with correct patient, procedure and location. A super umbilical incision was made approximately 20 cm superior to the pubic symphysis. The abdomen was then entered with a 8 mm trocar. Pneumoperitoneum was achieved. 2 additional incisions were made approximately 11 cm lateral to the super umbilical incision and 8 mm trochars were then placed. The patient was placed in Trendelenburg position on the hernia sites were clearly visualized bilaterally. Both were noted to be direct inguinal hernias. It was also pretty clear that the bladder was quite full. Patient stated that he did urinate prior to the procedure, however based on the size of the bladder and size of inguinal hernias, it was decided it would be safer to place a Sanchez catheter at this time. Sanchez catheter was unable to be placed by staff and urology was asked to place the catheter. Urology did perform a dilation of the meatus to be able to place catheter. They did also request that catheter remain in place after the surgery. The robot was then docked appropriately. Incision was then made just lateral to the medial umbilical ligament on the left side with the monopolar scissors and the peritoneal flap was created and was taken down towards Garrett's ligament. The flap was then extended laterally. Attention was then turned to the direct internal hernia. The sac was then freed from the surrounding structures and preserving the cord structures. At this point the direct hernia was reduced. Once the entire space was appropriately dissected out, attention was turned to the right side. Incision was then made just lateral to the medial umbilical ligament on the right side with the monopolar scissors and the peritoneal flap was created and was taken down towards Garrett's ligament. The flap was then extended laterally. Attention was then turned to the direct internal hernia. The sac was then freed from the surrounding structures and preserving the cord structures. Once the entire space was appropriately dissected out, we brought the laparoscopic anatomic parietex progrip mesh and unrolled it over the hernia sites. Once appropriately in place, the peritoneal flaps were closed using running 20 be lock sutures. Once this was completed, we removed all robotic instruments and undocked the robot. The super umbilical incision fascia was closed with 0 Vicryl suture using a Jameson [place] device. This was done under laparoscopic guidance. All skin incisions were then closed with 4-0 Vicryl suture. The patient was awakened and taken to recovery unit in stable condition.
[2020-09-24 11:48] VITALS: RESP 16
[2020-09-24 13:19] VITALS: BP 126/85; PULSE 79
--- NOTE | 2020-09-24 13:32 | P.ANPRN ---
Procedure Note - Anesthesia - Nerve Block Performed Right Erector Spinae Single Time Out Performed: Yes Date of Procedure: 09/24/20 Procedure Start Time: Procedure Stop Time: Location of Patient: PreOp Indication: Acute Post-Operative Pain, Requested by Surgeon Sedation Type: Sedate with meaningful contact maintained Preparation: Sterile Prep Position: Prone Needle Types: Pajunk Needle Gauge: 21 Ultrasound used to visualize needle placement: Yes Ultrasound used to observe medication spread: Yes Blood Aspirated: No Pain Paresthesia on Injection Noted: No Resistance on Injection: Normal Image Stored and Saved: Yes Events: Uneventful and Well Tolerated (ropi .25% 30cc at l1)
--- NOTE | 2020-09-24 17:09 | P.GSCN ---
History of Present Illness Consult date: 09/24/20 Reason for Consult: Urinary retention/ Meatal stenosis History of present illness: Mr Langley is an 54 yo male who is undergoing robotic inguinal hernia repair, patient was advised to void prior to surgery. intraoperatively it was noticed that the bladder was fairly distended. Attempted abel placement was unsuccessful due to meatal stenosis. Patient was intubated on evaluation, but no know urological hx Review of Systems ROS unobtainable: due to endotracheal tube Past Medical History Past Medical History: No Reported History Additional Past Medical History / Comment(s): inguinal hernia History of Any Multi-Drug Resistant Organisms: None Reported Past Surgical History: Orthopedic Surgery Additional Past Surgical History / Comment(s): fibroid tumor foot surgery and varicocele repair. fibroid tumor on neck removed Past Anesthesia/Blood Transfusion Reactions: No Reported Reaction Smoking Status: Current every day smoker - Past Family History Father Family Medical History: No Reported History Mother Family Medical History: No Reported History Medications and Allergies Home Medications Medication Instructions Recorded Confirmed Type Vitamin B Complex 1 cap PO DAILY 07/12/19 09/24/20 History Cholecalciferol [Vitamin D3 (25 125 mcg PO DAILY 09/20/20 09/24/20 History Mcg = 1000 Iu)] Potassium Magnesium Bromalin 1 tab PO DAILY 09/20/20 09/24/20 History HYDROcodone/APAP 5-325MG [[place] 1 tab PO Q6HR PRN 3 Days #12 tab 09/24/20 Rx 5-325] Ibuprofen [Motrin] 800 mg PO Q8H PRN #24 tab 09/24/20 Rx Allergies Allergy/AdvReac Type Severity Reaction Status Date / Time No Known Allergies Allergy Verified 09/24/20 07:45 Surgical - Exam Vital Signs Temp Pulse Resp BP Pulse Ox 98.5 F 74 16 117/76 97 09/24/20 07:39 09/24/20 07:39 09/24/20 07:39 09/24/20 07:39 09/24/20 07:39 - Genitourinary circumcised phallus, (+ meatal stenosis) testicles present Results - Labs 09/24/20 07:57 Abnormal Lab Results - Last 24 Hours (Table) 09/24/20 Range/Units 07:57 RBC 3.92 L (4.30-5.90) m/uL Hct 38.8 L (39.0-53.0) % Plt Count 132 L (150-450) k/uL Assessment and Plan Assessment: Mr Langley is an 54 yo male who is undergoing robotic inguinal hernia repair, patient was advised to void prior to surgery. intraoperatively it was noticed that the bladder was fairly distended. Attempted abel placement was unsuccessful due to meatal stenosis. -Meatal stricture was dilated using [place] Male sounds, a 14 Fr abel was placed. -Keep abel in place for 3 days, -F/U in Urology clinic in 1-2 weeks for UA/PVR
--- NOTE | 2020-09-24 17:12 | P.PCN ---
Date of Procedure: 09/24/20 Preoperative Diagnosis: Meatal stenosis Postoperative Diagnosis: same Procedure(s) Performed: dilation of meatal stricture and abel placement Implants: same Anesthesia: DAPHNEYA Surgeon: Jose Antonio Campo Estimated Blood Loss (ml): 1 Indications for Procedure: 54 yo male with hx of meatal stricture, Urology was consulted intraoperatively for abel placement Description of Procedure: The penis was prepped in sterile fashion, the meatal stenosis was dilated to 18 Fr using the [place] Male sounds. A 14 Fr abel was placed with return of clear urine. Abel balloon inflated with 10 mL. Patient tolerated procedure well
== END 2020-09-24 14:04 | disposition home or self-care (01) ==
LOC: OR 07:14
PROVIDERS: ATTEND Surgery
DX: K40.20 Bilateral inguinal hernia, without obstruction or gangrene, not specified as recurrent (principal); N35.911 Unspecified urethral stricture, male, meatal; J45.909 Unspecified asthma, uncomplicated; F17.210 Nicotine dependence, cigarettes, uncomplicated; Z98.890 Other specified postprocedural states
CPT/HCPCS: 64461; 76942; 85027; 49650; C1781; J2250; J1644; J1100 ×2; J2710; J0690; J2405; J2001; J3010; J2795; J0330; J2704; J1170

== ENCOUNTER 2021-04-11 20:42 | Emergency (ER) | payer OTHER ==
[2021-04-11 20:47] VITALS: BP 127/75; PULSE 117; RESP 18; TEMP 98.5
--- NOTE | 2021-04-11 23:03 | CT ---
EXAMINATION TYPE: CT brain natalieine wo con DATE OF EXAM: 04/11/2021 COMPARISON: 02/09/2016 HISTORY: ETOH Headache. Neck pain. CT DLP: 1267.8 mGycm Automated exposure control for dose reduction was used. Ventricles have normal size. There is no mass effect nor midline shift. There is no sign of intracran ial hemorrhage. The calvarium is intact. There is normal aeration of the mastoid sinuses. There is mu cosal thickening in the maxillary sinuses. There is some cerebral cortical atrophy. Cervical vertebra have normal alignment. There is spurring anteriorly at C5-6 and C4-5. Posterior mayr ments are intact. There is no compression fracture. IMPRESSION: Mild cerebral atrophy. No acute intracranial abnormality. Spondylotic changes in the lower cervical s pine. No fracture. No adverse change overall compared to old exam.
[2021-04-12] MEDS ORDERED: LORazepam 2 MG/ML INJ IM STA (00:21)
--- NOTE | 2021-04-12 01:46 | ED ---
General Adult HPI - General Chief complaint: Alcohol Stated complaint: ETOH Time Seen by Provider: 04/11/21 20:59 Source: patient Mode of arrival: wheelchair - History of Present Illness Initial comments: 55 year-old male patient presents to the emergency department for evaluation of alcohol intoxication. Patient was dropped off. When he arrived he was confused and drowsy. He state he is fine. Denies any injuries. Does not remember how he got here. He denies any pain. Denies nausea or vomiting. Denies any drug use. States he has been drinking alcohol today. - Related Data Home Medications Medication Instructions Recorded Confirmed Vitamin B Complex 1 cap PO DAILY 07/12/19 09/24/20 Cholecalciferol [Vitamin D3 (25 125 mcg PO DAILY 09/20/20 09/24/20 Mcg = 1000 Iu)] Potassium Magnesium Bromalin 1 tab PO DAILY 09/20/20 09/24/20 Previous Rx's Medication Instructions Recorded HYDROcodone/APAP 5-325MG [[place] 1 tab PO Q6HR PRN 3 Days #12 tab 09/24/20 5-325] Ibuprofen [Motrin] 800 mg PO Q8H PRN #24 tab 09/24/20 Allergies Allergy/AdvReac Type Severity Reaction Status Date / Time No Known Allergies Allergy Verified 04/11/21 20:47 Review of Systems ROS Statement: Those systems with pertinent positive or pertinent negative responses have been documented in the HPI. ROS Other: All systems not noted in ROS Statement are negative. Past Medical History Past Medical History: No Reported History Additional Past Medical History / Comment(s): Alcoholism. History of Any Multi-Drug Resistant Organisms: None Reported Past Surgical History: No Surgical Hx Reported Additional Past Surgical History / Comment(s): foot surgery and varicocele repair Past Psychological History: No Psychological Hx Reported Smoking Status: Unknown if ever smoked Past Alcohol Use History: Unable to Obtain, Abuse, Daily, Heavy Past Drug Use History: Unable to Obtain - Past Family History Father Family Medical History: No Reported History Mother Family Medical History: No Reported History General Exam General appearance: in no apparent distress, appears intoxicated, other (This is a well developed, well nourished adult male patient in no acute distress. V/S temp 98.5, pulse 117, resp 18, BP 127/75, Pulse Ox 93% room air. ) Eye exam: Present: normal appearance, PERRL, EOMI. Absent: scleral icterus, conjunctival injection, periorbital swelling ENT exam: Present: normal exam, normal oropharynx, mucous membranes moist Respiratory exam: Present: normal lung sounds bilaterally. Absent: respiratory distress, wheezes, rales, rhonchi, stridor Cardiovascular Exam: Present: regular rate, normal rhythm, normal heart sounds. Absent: systolic murmur, diastolic murmur, rubs, gallop, clicks GI/Abdominal exam: Present: soft, normal bowel sounds. Absent: distended, tenderness, guarding, rebound, rigid Neurological exam: Present: oriented X3, CN II-XII intact. Absent: alert (drowsy) Psychiatric exam: Present: normal affect, normal mood Skin exam: Present: warm, dry, intact, normal color. Absent: rash Course Vital Signs 04/11/21 20:42 Temperature 98.5 F Pulse Rate 117 H Respiratory 18 Rate Blood Pressure 127/75 O2 Sat by Pulse 93 L Oximetry Medical Decision Making - Medical Decision Making 55 year-old male patient was dropped off. Obviously intoxicated upon arrival. Physical exam was unremarkable. Due to drowsiness and altered mental status did perform CT brain cspine which was negative. He was monitored until sober and discharged. My attending is Dr. Vences. - Radiology Data Radiology results: report reviewed, image reviewed CT brain and C-spine without contrast is obtained. Report was reviewed in its entirety. Impression by Dr. Chang shows mild cerebral atrophy. No acute intracranial abnormality. Spondylotic change some lower cervical spine. No fracture. No adverse change compared to old exam Disposition Clinical Impression: Alcohol intoxication Disposition: HOME SELF-CARE Condition: Good Instructions (If sedation given, give patient instructions): Alcohol Intoxication (ED) Is patient prescribed a controlled substance at d/c from ED?: No Referrals: None,Stated [Primary Care Provider] - 1-2 days
== END 2021-04-12 04:52 | disposition home or self-care (01) ==
LOC: EC 20:42
DX: F10.129 Alcohol abuse with intoxication, unspecified (principal); Z79.1 Long term (current) use of non-steroidal anti-inflammatories (NSAID); Y90.9 Presence of alcohol in blood, level not specified
CPT/HCPCS: 70450; 72125; 82075; 99284

== ENCOUNTER 2022-10-29 09:33 | Day surgery (SDC) | payer OTHER ==
[~2022-10-29 09:33] MED LIST changes: -DEXAMETHASONE SOD PHOSPHATE 4 MG/ML 1 ML VIAL IV ONE; -HEPARIN SODIUM,PORCINE 5,000 UNIT/ML 1 ML VIAL SQ PRN; -HYDROmorphone 0.5 MG/0.5 ML SYRINGE IVP PRN; -MIDAZOLAM 2 MG/2 ML VIAL IV PRN; -ONDANSETRON 4 MG/2 ML VIAL IVP ONE; -fentaNYL (PF) 50 MCG/ML 2 ML AMP IV PRN
[2022-10-29 09:52] VITALS: TEMP 97.8
[2022-10-29] MEDS ORDERED: GLUCAGON 1 MG/ML VIAL ONE (10:01)
[2022-10-29] MEDS ORDERED: PROPOFOL 10 MG/ML 20 ML VIAL IV ONE (10:01)
[2022-10-29] MEDS ORDERED: LIDOCAINE 2% INJ 20 MG/ML (2 ML VIAL) ONE (10:01)
--- NOTE | 2022-10-29 10:04 | P.GSHP ---
History of Present Illness H&P Date: 10/29/22 Chief Complaint: Screening colonoscopy This a 56-year-old male who presents today for screening colonoscopy. Patient denies a significant GI complaints. Past Medical History Past Medical History: Asthma, Eye Disorder, GERD/Reflux, Prostate Disorder Additional Past Medical History / Comment(s): PAST COLON TUBULAR ADENOMAS, BPH,CHILDHOOD ASTHMA, STARTING OF CATARACTS BILATERALLY History of Any Multi-Drug Resistant Organisms: None Reported Past Surgical History: Hernia Repair, Orthopedic Surgery Additional Past Surgical History / Comment(s): colonoscopies with tubular adenomas, L foot surgery/fibrous tumor, varicocele repair, bilateral abdominal hernia repair Past Anesthesia/Blood Transfusion Reactions: No Reported Reaction Additional Past Anesthesia/Blood Transfusion Reaction / Comment(s): Pt has never had a blood transfusion. Smoking Status: Current every day smoker - Past Family History Father Family Medical History: No Reported History Mother Family Medical History: No Reported History Medications and Allergies Home Medications Medication Instructions Recorded Confirmed Type Vitamin B Complex 1 cap PO QAM 07/12/19 10/27/22 History Ibuprofen [Motrin] 800 mg PO Q8H PRN #24 tab 09/24/20 10/27/22 Rx Ascorbic Acid [Vitamin C] 500 mg PO QAM 10/27/22 10/27/22 History Tamsulosin HCl [Flomax] 0.4 mg PO QAM 10/27/22 10/27/22 History Allergies Allergy/AdvReac Type Severity Reaction Status Date / Time No Known Allergies Allergy Verified 10/29/22 09:47 Surgical - Exam Vital Signs Temp Pulse Resp BP Pulse Ox 97.8 F 78 16 106/67 95 10/29/22 09:51 10/29/22 09:51 10/29/22 09:51 10/29/22 09:51 10/29/22 09:51 - General well developed, well nourished, no distress - Eyes PERRL - ENT normal pinna - Neck no masses - Respiratory normal expansion - Cardiovascular Rhythm: regular - Abdomen Abdomen: soft, non tender Assessment and Plan Assessment: We'll perform screening colonoscopy
--- NOTE | 2022-10-29 10:31 | P.OP ---
Date of Procedure: 10/29/22 Preoperative Diagnosis: Screening colonoscopy Postoperative Diagnosis: Normal colonoscopy Procedure(s) Performed: Colonoscopy Anesthesia: MAC Surgeon: Casper Erwin Pathology: none sent Condition: stable Disposition: PACU Description of Procedure: The patient's placed on the endoscopy table in the lateral position. He received IV sedation. Digital rectal exam performed. This revealed no ebonized. Flexible colonoscope was then placed patient anus and passed throughout the entire colon. The ileocecal valve was not visualized and tortuous valve. Several times made to make it into the valve power this wasn't possible. Scope withdrawn. The visualized ascending colon and transverse colon appeared normal. The descending and sigmoid colon appeared normal however the bowel was quite tortuous. Scope was brought back into the rectum and this appeared normal. Scope withdrawn for patient.
[2022-10-29 10:53] VITALS: BP 92/57; PULSE 62; RESP 18
== END 2022-10-29 11:39 | disposition home or self-care (01) ==
LOC: ORWHC2ENDO 09:33
PROVIDERS: ATTEND Surgery
DX: Z12.11 Encounter for screening for malignant neoplasm of colon (principal); J45.909 Unspecified asthma, uncomplicated; K21.9 Gastro-esophageal reflux disease without esophagitis; N40.0 Benign prostatic hyperplasia without lower urinary tract symptoms; F17.200 Nicotine dependence, unspecified, uncomplicated; Z86.010 Personal history of colon polyps; Z79.1 Long term (current) use of non-steroidal anti-inflammatories (NSAID); Z79.899 Other long term (current) drug therapy
CPT/HCPCS: 45378; J1610; J2704; J2001

== ENCOUNTER → 2023-02-04 | Outpatient (CLI) | payer OTHER ==
--- NOTE | 2023-02-04 17:34 | CTL ---
EXAMINATION TYPE: CT Low Dose Lung DATE OF EXAM ORDERED: 02/04/2023 HISTORY: Z87.891. Lung cancer screening CT DLP: 111.[address] CTDI: 2.7 mGy Automated exposure control for dose reduction was used. SCREENING VISIT: Follow-up COMPARISON: CT low-dose lung cancer screening 10/01/2022 TECHNIQUE: Low dose computed tomography scan was performed through the chest at 1 mm thick sections a nd reconstructed images in multiple planes at 1 mm and [address] DIAGNOSTIC QUALITY: Satisfactory FINDINGS: LUNG NODULES: Present, detailed below: A few scattered small nodules are seen bilaterally again. For reference there is a stable 5 mm periph eral left lower lobe nodule axial image 242. 2 stable 2 mm nodules seen in right middle lobe axial im age 212 and 211. No greater than 6 mm pulmonary nodules. No new or enlarging pulmonary nodules. LUNGS: COPD: Severity: Mild Fibrosis: Severity: Minimal Lymph nodes: No greater than 1.0 cm Other findings: None RIGHT PLEURAL SPACE: Effusion: None Calcification: None Thickening: None Pneumothorax: None LEFT PLEURAL SPACE: Effusion: None Calcification: None Thickening: None Pneumothorax: None HEART: Heart Size: Normal Coronary Calcification: Moderate to severe three-vessel Pericardial Effusion: None OTHER FINDINGS: Upper abdomen: Cholelithiasis. Bony thorax: None Supraclavicular region: None Other: Ectasia of the ascending thoracic aorta measuring up to 3.9 cm. IMPRESSION: Few small stable nodules measuring under 6 mm in size. No new or enlarging pulmonary nodu les. CT LUNG RAD AND CT CHEST RECOMMENDATION: Lung-Rad 2 Benign Appearance or Behavior: Continue annual sc reening with LDCT in 12 months. S Modifier (other clinically significant findings): None
== END | disposition home or self-care (01) ==
LOC: RADCTMAIN 16:47
PROVIDERS: ATTEND Family Medicine
DX: Z12.2 Encounter for screening for malignant neoplasm of respiratory organs (principal); R91.8 Other nonspecific abnormal finding of lung field; F17.210 Nicotine dependence, cigarettes, uncomplicated
CPT/HCPCS: 71271

== ENCOUNTER 2023-03-14 17:49 | Emergency (ER) | payer OTHER ==
[2023-03-14 17:55] VITALS: TEMP 98
[2023-03-14] MEDS ORDERED: SODIUM CHLORIDE 0.9% 1,000 ML IV STA (17:58)
--- NOTE | 2023-03-14 18:01 | ED ---
Dizziness HPI - General Chief Complaint: Dizziness Stated Complaint: chest pain Time Seen by Provider: 03/14/23 17:58 Source: patient, family, RN notes reviewed, old records reviewed Mode of arrival: ambulatory Limitations: no limitations - History of Present Illness Initial Comments: This is a 49-year-old male to the emergency department today for evaluation. Patient states his history of arrhythmia and similar symptoms as how he feels now. Lightheadedness dizziness and heart skipping a beat heart missing beats and positive. Patient has no fevers no cough no congestion of travel show sick contacts. Patient is having persistent symptoms on arrival to the ER tonight with history of similar symptoms in the past but never had persistent known d iagnosis of cause of the symptoms, he states that pain here in the ER is a first-time is been evaluated while he symptoms were ongoing MD Complaint: dizziness, lightheadedness, near syncope -: year(s) Timing: sudden onset Description: lightheadedness, near-syncope History of Same: Yes History of Trauma: No Severity: moderate Worsens With: nothing Associated Symptoms: denies other symptoms - Related Data Home Medications Medication Instructions Recorded Confirmed Tamsulosin HCl [Flomax] 0.4 mg PO HS 10/27/22 03/14/23 Aspirin EC [Ecotrin Low Dose] 81 mg PO HS 03/14/23 03/14/23 Atorvastatin [Lipitor] 20 mg PO HS 03/14/23 03/14/23 Allergies Allergy/AdvReac Type Severity Reaction Status Date / Time No Known Allergies Allergy Verified 03/14/23 20:43 Review of Systems ROS Statement: Those systems with pertinent positive or pertinent negative responses have been documented in the HPI. ROS Other: All systems not noted in ROS Statement are negative. Past Medical History Past Medical History: No Reported History Additional Past Medical History / Comment(s): Alcoholism. History of Any Multi-Drug Resistant Organisms: None Reported Past Surgical History: No Surgical Hx Reported, Hernia Repair Additional Past Surgical History / Comment(s): foot surgery and varicocele repair Past Psychological History: No Psychological Hx Reported Smoking Status: Unknown if ever smoked Past Alcohol Use History: Unable to Obtain, Abuse, Daily, Heavy Past Drug Use History: Unable to Obtain - Past Family History Father Family Medical History: No Reported History Mother Family Medical History: No Reported History General Exam Limitations: no limitations General appearance: alert, in no apparent distress, anxious Head exam: Present: atraumatic, normocephalic, normal inspection Eye exam: Present: normal appearance, PERRL, EOMI. Absent: scleral icterus, conjunctival injection, periorbital swelling ENT exam: Present: normal exam, mucous membranes moist Neck exam: Present: normal inspection. Absent: tenderness, meningismus, lymphadenopathy Respiratory exam: Present: normal lung sounds bilaterally. Absent: respiratory distress, wheezes, rales, rhonchi, stridor Cardiovascular Exam: Present: normal rhythm, bradycardia, normal heart sounds. Absent: systolic murmur, diastolic murmur, rubs, gallop, clicks GI/Abdominal exam: Present: soft, normal bowel sounds. Absent: distended, tenderness, guarding, rebound, rigid Extremities exam: Present: normal inspection, full ROM, normal capillary refill. Absent: tenderness, pedal edema, joint swelling, calf tenderness Back exam: Present: normal inspection Neurological exam: Present: alert, oriented X3, CN II-XII intact Psychiatric exam: Present: normal affect, normal mood Skin exam: Present: warm, dry, intact, normal color. Absent: rash Course Vital Signs 03/14/23 03/14/23 03/14/23 17:52 18:11 20:20 Temperature 98 F Pulse Rate 54 L 65 65 Respiratory 16 18 18 Rate Blood Pressure 128/71 117/75 O2 Sat by Pulse 97 99 Oximetry 03/14/23 21:02 Temperature Pulse Rate 69 Respiratory 18 Rate Blood Pressure 118/84 O2 Sat by Pulse 99 Oximetry - Reevaluation(s) Reevaluation #1: 03/14/23 20:16 Medical records reviewed Reevaluation #2: 03/14/23 20:16 Patient still with persistent PVCs here in the ER Reevaluation #3: 03/14/23 20:17 Patient informed results questions answered Reevaluation #4: 03/14/23 18:01 Was pt. sent in by a medical professional or institution (Dr. PA, SEAFOOD CLERK, urgent care, hospital, or long term...) When possible be specific @ -no Did you speak to anyone other than the patient for history (EMS, parent, family, police, friend...)? What history was obtained from this source @ -no Did you review nursing and triage notes (agree or disagree)? Why? @ -agree Are old charts reviewed (outside hosp., previous admission, EMS record, old EKG, old radiological studies, urgent care reports/EKG's, long term records)? Report findings @ -yes Differential Diagnosis (chest pain, altered mental status, abdominal pain women, abdominal pain men, vaginal bleeding, weakness, fever, dyspnea, syncope, headache, dizziness, GI bleed, back pain, seizure, CVA, palpatations, mental health, musculoskeletal)? @ -prior EKG interpreted by me (3pts min.). @ -yes X-rays interpreted by me (1pt min.). @ -yes CT interpreted by me (1pt min.). @ -no U/S interpreted by me (1pt. min.). @ -no What testing was considered but not performed or refused? (CT, X-rays, U/S, labs)? Why? @ -none What meds were considered but not given or refused? Why? @ -none Did you discuss the management of the patient with other professionals (professionals i.e. , PA, SEAFOOD CLERK, lab, RT, psych nurse, protective services social worker, log carrier operator, teacher, restoration officer, clinical case manager)? Give summary @ -no Was smoking cessation discussed for >3mins.? @ -no Was critical care preformed (if so, how long)? @ -no Were there social determinants of health that impacted care today? How? (Homelessness, low income, unemployed, alcoholism, drug addiction, transportation, low edu. Level, literacy, decrease access to med. care, half-way, rehab)? @ -none Was there de-escalation of care discussed even if they declined (Discuss DNR or withdrawal of care, Hospice)? DNR status @ -no What co-morbidities impacted this encounter? (DM, HTN, Smoking, COPD, CAD, Cancer, CVA, ARF, Chemo, Hep., AIDS, mental health diagnosis, sleep apnea, morbid obesity)? @ -none Was patient admitted / discharged? Hospital course, mention meds given and route, prescriptions, significant lab abnormalities, going to OR and other per tinent info. @ - 53 male to the emergency department for evaluation of palpitations heart skipping a beat patient feeling for some time. We do see that this appears to be symptomatic bradycardia here in the ER with multiple recurrent PVCs. Patient will be admitted for cardiology evaluation Admitted Undiagnosed new problem with uncertain prognosis? @ -no Drug Therapy requiring intensive monitoring for toxicity (Heparin, Nitro, Insulin, Cardizem)? @ -no Were any procedures done? @ -no Diagnosis/symptom? @ -Arrhythmia, bradycardia, PVCs Acute, or Chronic, or Acute on Chronic? @ -Acute Uncomplicated (without systemic symptoms) or Complicated (systemic symptoms)? @ -Complicated Side effects of treatment? @ -no Exacerbation, Progression, or Severe Exacerbation? @ -exacerbation Poses a threat to life or bodily function? How? (Chest pain, USA, [place], pneumonia, PE, COPD, DKA, ARF, appy, cholecystitis, CVA, Diverticulitis, Homicidal, Suicidal, threat to staff... and all critical care pts) @ -yes with arrhythmia Reevaluation #5: Differential Palpitations Ventricular arrhythmias, atrial arrhythmias, myocardial infarction, anemia, thyrotoxicosis, electrolyte imbalance, hypokalemia, pulmonary embolism, pulmonary disease, drugs, alcohol, anxiety, stress.... This is not meant to be an all-inclusive list. - Consultations Consultation #1: Spoke with [facility] were agrees to admit the patient EKG Findings - EKG Comments: EKG Findings:: EKG is sinus 78 [place] 139 [id number] QTc 410 - EKG Results: EKG: interpreted by [facility] Medical Decision Making - Medical Decision Making 53 male to the emergency department for evaluation of palpitations heart skipping a beat patient feeling for some time. We do see that this appears to be symptomatic bradycardia here in the ER with multiple recurrent PVCs. Patient will be admitted for cardiology evaluation - Lab Data Result diagrams: 03/14/23 18:14 03/14/23 19:18 Lab Results 03/14/23 03/14/23 03/14/23 Range/Units 18:14 18:14 18:14 WBC 6.6 (3.8-10.6) k/uL RBC 4.32 (4.30-5.90) m/uL Hgb 14.5 (13.0-17.5) gm/dL Hct 41.1 (39.0-53.0) % MCV 95.2 (80.0-100.0) fL MCH 33.5 (25.0-35.0) pg MCHC 35.2 (31.0-37.0) g/dL RDW 12.1 (11.5-15.5) % Plt Count 139 L (150-450) k/uL MPV 9.0 Neutrophils % 46 % Lymphocytes % 40 % Monocytes % 8 % Eosinophils % 4 % Basophils % 0 % Neutrophils # 3.1 (1.3-7.7) k/uL Lymphocytes # 2.6 (1.0-4.8) k/uL Monocytes # 0.5 (0-1.0) k/uL Eosinophils # 0.2 (0-0.7) k/uL Basophils # 0.0 (0-0.2) k/uL PT 10.0 (9.0-12.0) sec INR 0.9 (<1.2) APTT 20.7 L (22.0-30.0) sec Sodium (137-145) mmol/L Potassium (3.5-5.1) mmol/L Chloride (98-107) mmol/L Carbon Dioxide (22-30) mmol/L Anion Gap mmol/L BUN (9-20) mg/dL Creatinine (0.66-1.25) mg/dL Est GFR (CKD-EPI)AfAm (>60 ml/min/1.73 sqM) Est GFR (CKD-EPI)NonAf (>60 ml/min/1.73 sqM) Glucose (74-99) mg/dL Calcium (8.4-10.2) mg/dL Phosphorus (2.5-4.5) mg/dL Magnesium (1.6-2.3) mg/dL Total Bilirubin (0.2-1.3) mg/dL AST (17-59) U/L ALT (4-49) U/L Alkaline Phosphatase (38-126) U/L Troponin I <0.012 (0.000-0.034) ng/mL NT-Pro-B Natriuret Pep pg/mL Total Protein (6.3-8.2) g/dL Albumin (3.5-5.0) g/dL 03/14/23 Range/Units 19:18 WBC (3.8-10.6) k/uL RBC (4.30-5.90) m/uL Hgb (13.0-17.5) gm/dL Hct (39.0-53.0) % MCV (80.0-100.0) fL MCH (25.0-35.0) pg MCHC (31.0-37.0) g/dL RDW (11.5-15.5) % Plt Count (150-450) k/uL MPV Neutrophils % % Lymphocytes % % Monocytes % % Eosinophils % % Basophils % % Neutrophils # (1.3-7.7) k/uL Lymphocytes # (1.0-4.8) k/uL Monocytes # (0-1.0) k/uL Eosinophils # (0-0.7) k/uL Basophils # (0-0.2) k/uL PT (9.0-12.0) sec INR (<1.2) APTT (22.0-30.0) sec Sodium 137 (137-145) mmol/L Potassium 4.3 (3.5-5.1) mmol/L Chloride 104 (98-107) mmol/L Carbon Dioxide 26 (22-30) mmol/L Anion Gap 7 mmol/L BUN 15 (9-20) mg/dL Creatinine 0.79 (0.66-1.25) mg/dL Est GFR (CKD-EPI)AfAm >90 (>60 ml/min/1.73 sqM) Est GFR (CKD-EPI)NonAf >90 (>60 ml/min/1.73 sqM) Glucose 92 (74-99) mg/dL Calcium 8.7 (8.4-10.2) mg/dL Phosphorus 3.7 (2.5-4.5) mg/dL Magnesium 1.7 (1.6-2.3) mg/dL Total Bilirubin 0.6 (0.2-1.3) mg/dL AST 29 (17-59) U/L ALT 30 (4-49) U/L Alkaline Phosphatase 47 (38-126) U/L Troponin I (0.000-0.034) ng/mL NT-Pro-B Natriuret Pep 179 pg/mL Total Protein 6.6 (6.3-8.2) g/dL Albumin 4.0 (3.5-5.0) g/dL - EKG Data -: EKG Interpreted by Me - Radiology Data Radiology results: report reviewed (Chest x-rays negative for acute disease), image reviewed Disposition Clinical Impression: PVC (premature ventricular contraction), Bradycardia Disposition: HOME SELF-CARE Condition: Good Is patient prescribed a controlled substance at d/c from ED?: No Time of Disposition: 20:45
[2023-03-14 18:14] VITALS: RESP 18
--- NOTE | 2023-03-14 18:33 | XR ---
EXAMINATION TYPE: XR chest 1V portable DATE OF EXAM: 03/14/2023 6:27 PM COMPARISON: Chest radiographs from 02/09/2016 TECHNIQUE: XR chest 1V portable Frontal view of the chest. CLINICAL INDICATION:Male, 57 years old with history of cp; FINDINGS: Lungs/Pleura: There is no evidence of pleural effusion, focal consolidation, or pneumothorax. Pulmonary vascularity: Unremarkable. Heart/mediastinum: Cardiomediastinal silhouette is unremarkable. Musculoskeletal: No acute osseous pathology. Remote distal right clavicle fracture. IMPRESSION: No acute cardiopulmonary disease/process. Remote distal right clavicle fracture.
[2023-03-14 18:46] LABS: Basophils % (A) 0 %; Eosinophils # (A) 0.2 k/uL (0-0.7); Eosinophils % (A) 4 %; HCT 41.1 % (39.0-53.0); HGB 14.5 gm/dL (13.0-17.5); Lymphocytes # (A) 2.6 k/uL (1.0-4.8); Lymphocytes % (A) 40 %; MCH 33.5 pg (25.0-35.0); MCHC 35.2 g/dL (31.0-37.0); MCV 95.2 fL (80.0-100.0); Monocytes # (A) 0.5 k/uL (0-1.0); Monocytes % (A) 8 %; Neutrophils # (A) 3.1 k/uL (1.3-7.7); Neutrophils % (A) 46 %; Platelet Count 139 k/uL (150-450); RBC 4.32 m/uL (4.30-5.90); RDW 12.1 % (11.5-15.5); WBC 6.6 k/uL (3.8-10.6)
[2023-03-14 19:12] LABS: INR 0.9 (<1.2)
[2023-03-14 19:35] LABS: Partial Thromboplastin Time 20.7 sec (22.0-30.0)
[2023-03-14 19:43] LABS: ALT 30 U/L (4-49); AST 29 U/L (17-59); African American GFR (CKD) >90 (>60 ml/min/1.73 sqM); Alkaline Phosphatase 47 U/L (38-126); Anion Gap 7 mmol/L; Blood Urea Nitrogen 15 mg/dL (9-20); Calcium 8.7 mg/dL (8.4-10.2); Carbon Dioxide 26 mmol/L (22-30); Chloride 104 mmol/L (98-107); Glucose 92 mg/dL (74-99); Magnesium 1.7 mg/dL (1.6-2.3); Non-African American GFR(CKD) >90 (>60 ml/min/1.73 sqM); Phosphorus 3.7 mg/dL (2.5-4.5); Potassium 4.3 mmol/L (3.5-5.1); Sodium 137 mmol/L (137-145); Total Bilirubin 0.6 mg/dL (0.2-1.3); Total Protein 6.6 g/dL (6.3-8.2)
[2023-03-14 19:51] LABS: NT-Pro-B-Type Natriuretic Pept 179 pg/mL
[2023-03-14] MEDS ORDERED: MORPHINE SULFATE 4 MG/ML SYRINGE IV PRN (20:15)
[2023-03-14] MEDS ORDERED: NALOXONE 0.4 MG/ML 1 ML VIAL IV PRN (20:15)
[2023-03-14] MEDS ORDERED: ONDANSETRON 4 MG/2 ML VIAL IVP PRN (20:15)
[2023-03-14] MEDS ORDERED: SODIUM CHLORIDE 0.9% 1,000 ML IV SCH (20:15)
[2023-03-14 21:03] VITALS: BP 118/84; PULSE 69
== END 2023-03-14 21:09 | disposition home or self-care (01) ==
LOC: EC 17:49 → UNDOADMOB 20:16 → 6NMEDSUR 20:16 → UNDODISOB 21:02
DX: I49.3 Ventricular premature depolarization (principal); Z79.82 Long term (current) use of aspirin
CPT/HCPCS: 99285; 36415; 93005; 83880; 80053; 83735; 84100; 84484; 85025; 85610; 85730; 71045; 99284; G0378

== ENCOUNTER 2023-12-23 09:15 | Emergency (ER) | payer OTHER ==
[2023-12-23 10:12] VITALS: PULSE 96; TEMP 97.5
[2023-12-23 10:14] LABS: Basophils % (A) 1 %; Eosinophils # (A) 0.1 k/uL (0-0.7); Eosinophils % (A) 1 %; HCT 43.6 % (39.0-53.0); HGB 14.5 gm/dL (13.0-17.5); Lymphocytes # (A) 1.3 k/uL (1.0-4.8); Lymphocytes % (A) 16 %; MCH 32.9 pg (25.0-35.0); MCHC 33.3 g/dL (31.0-37.0); MCV 98.8 fL (80.0-100.0); Mean Platelet Volume 9.2; Monocytes # (A) 0.4 k/uL (0-1.0); Monocytes % (A) 4 %; Neutrophils # (A) 6.4 k/uL (1.3-7.7); Neutrophils % (A) 77 %; Platelet Count 138 k/uL (150-450); RBC 4.41 m/uL (4.30-5.90); RDW 13.6 % (11.5-15.5); WBC 8.3 k/uL (3.8-10.6)
[2023-12-23 10:22] LABS: ALT 32 U/L (4-49); African American GFR (CKD) >90 (>60 ml/min/1.73 sqM); Albumin 4.4 g/dL (3.5-5.0); Amylase 96 U/L (30-110); Anion Gap 11 mmol/L; Blood Urea Nitrogen 13 mg/dL (9-20); Calcium 8.2 mg/dL (8.4-10.2); Carbon Dioxide 23 mmol/L (22-30); Chloride 111 mmol/L (98-107); Glucose 118 mg/dL (74-99); Lipase 84 U/L (23-300); Non-African American GFR(CKD) >90 (>60 ml/min/1.73 sqM); Sodium 145 mmol/L (137-145); Total Bilirubin 0.9 mg/dL (0.2-1.3); Total Protein 6.7 g/dL (6.3-8.2)
--- NOTE | 2023-12-23 10:24 | CT ---
EXAMINATION TYPE: CT brain jacek rodriguez con DATE OF EXAM: 12/23/2023 COMPARISON: 04/11/2021 HISTORY: Fall. ETOH. CT DLP: 1439.[address] of the brain was performed. The ventricles, basal cisterns and sulci overlying the cerebral convexities demonstrate mild enlargem ent. There is no evidence for intracranial hemorrhage or sulcal effacement. There is decreased attenuatio n about the periventricular white matter and deep white matter of both cerebral hemispheres, compatib le with chronic small vessel ischemia. No mass effects are seen. If symptoms persist consider MRI. Osseous calvarium is intact. Left parietal scalp hematoma. IMPRESSION: 1. Age related atrophic and chronic small vessel ischemic change without acute intracranial process seen at this time. CT Cervical Spine: Unenhanced CT of the cervical spine was performed with bone and soft tissue window settings submitted . Coronal and sagittal reconstruction is obtained. There is normal alignment and prevertebral soft tissues. No evidence for acute cervical fracture . Scattered degenerative disc disease and spondylosis. Biapical scarring. IMPRESSION: 1. No evidence for acute fracture or subluxation of the cervical spine.
[2023-12-23 10:31] LABS: AST 49 U/L (17-59); Alkaline Phosphatase 55 U/L (38-126); Magnesium 1.7 mg/dL (1.6-2.3); Potassium 4.1 mmol/L (3.5-5.1)
[2023-12-23 10:33] LABS: Alcohol 410 mg/dL
--- NOTE | 2023-12-23 11:06 | ED ---
Alcohol HPI - General Chief Complaint: Alcohol Stated Complaint: ETOH Time Seen by Provider: 12/23/23 09:19 Source: patient, police, EMS, RN notes reviewed Mode of arrival: EMS Limitations: no limitations - History of Present Illness Initial Comments: 58-year-old male presents emergency department chief complaint of alcohol intoxication. Patient was brought in via EMS with police from work for acute alcohol intoxication patient was found to be altered patient noted to have dried blood in the left side of his head unclear how this happens he states he has no pain. Denies any blood thinners denies chest pain shortness of breath fevers chills cough cold-like symptoms patient is a known alcoholic. - Related Data Home Medications Medication Instructions Recorded Confirmed Tamsulosin HCl [Flomax] 0.4 mg PO HS 10/27/22 03/14/23 Aspirin EC [Ecotrin Low Dose] 81 mg PO HS 03/14/23 03/14/23 Atorvastatin [Lipitor] 20 mg PO HS 03/14/23 03/14/23 Allergies Allergy/AdvReac Type Severity Reaction Status Date / Time No Known Allergies Allergy Verified 12/23/23 09:22 Review of Systems ROS Statement: Those systems with pertinent positive or pertinent negative responses have been documented in the HPI. ROS Other: All systems not noted in ROS Statement are negative. Past Medical History Past Medical History: No Reported History Additional Past Medical History / Comment(s): Alcoholism. History of Any Multi-Drug Resistant Organisms: None Reported Past Surgical History: No Surgical Hx Reported, Hernia Repair Additional Past Surgical History / Comment(s): foot surgery and varicocele repair Past Psychological History: No Psychological Hx Reported Smoking Status: Unknown if ever smoked Past Alcohol Use History: Unable to Obtain, Abuse, Daily, Heavy Past Drug Use History: Unable to Obtain - Past Family History Father Family Medical History: No Reported History Mother Family Medical History: No Reported History General Exam Limitations: no limitations General appearance: alert, in no apparent distress Head exam: Present: atraumatic, normocephalic. Absent: normal inspection (Abrasion, superficial laceration left side of the head) Eye exam: Present: normal appearance, PERRL, EOMI. Absent: scleral icterus, conjunctival injection, periorbital swelling ENT exam: Present: normal exam, normal oropharynx, mucous membranes moist Neck exam: Present: normal inspection, full ROM. Absent: tenderness, meningismus, lymphadenopathy Respiratory exam: Present: normal lung sounds bilaterally. Absent: respiratory distress, wheezes, rales, rhonchi, stridor Cardiovascular Exam: Present: regular rate, normal rhythm, normal heart sounds. Absent: systolic murmur, diastolic murmur, rubs, gallop, clicks GI/Abdominal exam: Present: soft, normal bowel sounds. Absent: distended, tenderness, guarding, rebound, rigid Neurological exam: Present: alert Skin exam: Present: warm, dry, intact, normal color. Absent: rash Course Vital Signs 12/23/23 12/23/23 09:17 11:00 Temperature 97.5 F L Pulse Rate 96 96 Respiratory 14 19 Rate Blood Pressure 129/82 111/72 O2 Sat by Pulse 95 96 Oximetry Medical Decision Making - Medical Decision Making Was pt. sent in by a medical professional or institution (, PA, WINDOW CUTTER, urgent care, hospital, or penitentiary...) When possible be specific @ -No Did you speak to anyone other than the patient for history (EMS, parent, family, police, friend...)? What history was obtained from this source @ -No Did you review nursing and triage notes (agree or disagree)? Why? @ -I reviewed and agree with nursing and triage notes Were old charts reviewed (outside hosp., previous admission, EMS record, old EKG, old radiological studies, urgent care reports/EKG's, penitentiary records)? Report findings @ -No old charts were reviewed Differential Diagnosis (chest pain, altered mental status, abdominal pain women, abdominal pain men, vaginal bleeding, weakness, fever, dyspnea, syncope, headache, dizziness, GI bleed, back pain, seizure, CVA, palpatations, mental health, musculoskeletal)? @ -Alcohol intoxication, alcohol abuse EKG interpreted by me (3pts min.). @ -None X-rays interpreted by me (1pt min.). @ -None done CT interpreted by me (1pt min.). @ -CT brain, C-spine shows no acute intracranial hemorrhage or mass effect, no cervical fracture or malalignment U/S interpreted by me (1pt. min.). @ -None done What testing was considered but not performed or refused? (CT, X-rays, U/S, labs)? Why? @ -None What meds were considered but not given or refused? Why? @ -None Did you discuss the management of the patient with other professionals (professionals i.e. , PA, WINDOW CUTTER, lab, RT, psych nurse, social sciences professor, v belt finisher, teacher, delinquency prevention officer, hospice case manager)? Give summary @ -No Was smoking cessation discussed for >3mins.? @ -No Was critical care preformed (if so, how long)? @ -No Were there social determinants of health that impacted care today? How? (Homelessness, low income, unemployed, alcoholism, drug addiction, transportation, low edu. Level, literacy, decrease access to med. care, residential, rehab)? @ -No Was there de-escalation of care discussed even if they declined (Discuss DNR or withdrawal of care, Hospice)? DNR status @ -No What co-morbidities impacted this encounter? (DM, HTN, Smoking, COPD, CAD, Cancer, CVA, ARF, Chemo, Hep., AIDS, mental health diagnosis, sleep apnea, morbid obesity)? @ -None Was patient admitted / discharged? Hospital course, mention meds given and route, prescriptions, significant lab abnormalities, going to OR and other pertinent info. @ -Discharge patient has CT, laboratory studies without acute findings. Patient was observed for several hours patient has sobered up and is cleared for incarceration patient is discharged to police custody Undiagnosed new problem with uncertain prognosis? @ -No Drug Therapy requiring intensive monitoring for toxicity (Heparin, Nitro, Insulin, Cardizem)? @ -No Were any procedures done? @ -No Diagnosis/symptom? @ -Alcohol intoxication Acute, or Chronic, or Acute on Chronic? @ -Acute Uncomplicated (without systemic symptoms) or Complicated (systemic symptoms)? @ -Complicated Side effects of treatment? @ -No Exacerbation, Progression, or Severe Exacerbation? @ -No Poses a threat to life or bodily function? How? (Chest pain, USA, [place], pneumonia, PE, COPD, DKA, ARF, appy, cholecystitis, CVA, Diverticulitis, Homicidal, Suicidal, threat to staff... and all critical care pts) @ -No - Lab Data Result diagrams: 12/23/23 09:38 12/23/23 09:38 Lab Results 12/23/23 12/23/23 Range/Units 09:38 09:38 WBC 8.3 (3.8-10.6) k/uL RBC 4.41 (4.30-5.90) m/uL Hgb 14.5 (13.0-17.5) gm/dL Hct 43.6 (39.0-53.0) % MCV 98.8 (80.0-100.0) fL MCH 32.9 (25.0-35.0) pg MCHC 33.3 (31.0-37.0) g/dL RDW 13.6 (11.5-15.5) % Plt Count 138 L (150-450) k/uL MPV 9.2 Neutrophils % 77 % Lymphocytes % 16 % Monocytes % 4 % Eosinophils % 1 % Basophils % 1 % Neutrophils # 6.4 (1.3-7.7) k/uL Lymphocytes # 1.3 (1.0-4.8) k/uL Monocytes # 0.4 (0-1.0) k/uL Eosinophils # 0.1 (0-0.7) k/uL Basophils # 0.0 (0-0.2) k/uL Sodium 145 (137-145) mmol/L Potassium 4.1 (3.5-5.1) mmol/L Chloride 111 H (98-107) mmol/L Carbon Dioxide 23 (22-30) mmol/L Anion Gap 11 mmol/L BUN 13 (9-20) mg/dL Creatinine 0.59 L (0.66-1.25) mg/dL Est GFR (CKD-EPI)AfAm >90 (>60 ml/min/1.73 sqM) Est GFR (CKD-EPI)NonAf >90 (>60 ml/min/1.73 sqM) Glucose 118 H (74-99) mg/dL Calcium 8.2 L (8.4-10.2) mg/dL Magnesium 1.7 (1.6-2.3) mg/dL Total Bilirubin 0.9 (0.2-1.3) mg/dL AST 49 (17-59) U/L ALT 32 (4-49) U/L Alkaline Phosphatase 55 (38-126) U/L Total Protein 6.7 (6.3-8.2) g/dL Albumin 4.4 (3.5-5.0) g/dL Amylase 96 (30-110) U/L Lipase 84 (23-300) U/L Serum Alcohol 410 H* mg/dL - EKG Data -: EKG Interpreted by Me EKG Comments: EKG performed at 9: 21 sinus rhythm rate of 94 VA 149 QRS 143 QT/QTc 372/424 Disposition Clinical Impression: Alcoholic intoxication Disposition: HOME SELF-CARE Condition: Fair Instructions (If sedation given, give patient instructions): Alcohol Intoxication (ED) Is patient prescribed a controlled substance at d/c from ED?: No Referrals: Elinor Fernandez MD [Primary Care Provider] - 1-2 days Time of Disposition: 14:07
[2023-12-23 12:09] VITALS: BP 111/72; RESP 19
== END 2023-12-23 14:07 | disposition home or self-care (01) ==
LOC: EC 09:15
DX: F10.129 Alcohol abuse with intoxication, unspecified (principal); I45.10 Unspecified right bundle-branch block; Y90.8 Blood alcohol level of 240 mg/100 ml or more
CPT/HCPCS: 36415; 93005; 80053; 82150; 83690; 83735; 85025; 72125; 70450; 99285; G0480; 80320

== ENCOUNTER → 2024-11-16 | Outpatient (CLI) | payer OTHER ==
--- NOTE | 2024-11-16 11:38 | CTL ---
EXAMINATION TYPE: CT Low Dose Lung DATE OF EXAM ORDERED: 11/16/2024 COMPARISON: Low-dose lung screening CT February 04, 2023 and older studies CLINICAL INDICATION: Male, 59 years old with history of Z12.2 LUNG CA SCR F17.210 CURRENT SMOKER; PH H, current smoker 1PPD x30 years., Lung cancer screening, History of Smoking/tobacco use. TECHNIQUE: Low dose computed tomography scan was performed through the chest at 1 mm thick sections a nd reconstructed images in multiple planes at 1 mm and [address] DLP: 109.[address] CTDI: 2.8 mGy Automated exposure control for dose reduction was used. CT DIAGNOSTIC QUALITY: Satisfactory FINDINGS: Nodules: A few scattered small nodules are demonstrated bilaterally. For reference there is a stabl e 4-5 mm peripheral left lower lobe nodule axial image 238. No new or enlarging greater than 4 mm pulmonary nodules. LUNGS: COPD: Severity: Mild Fibrosis: Severity: None Lymph nodes: None Other findings: None RIGHT PLEURAL SPACE: Effusion: None Calcification: None Thickening: None Pneumothorax: None LEFT PLEURAL SPACE: Effusion: None Calcification: None Thickening: None Pneumothorax: None HEART: Heart Size: Normal Coronary Calcification: Moderate to severe three-vessel coronary artery calcification redemonstrated Pericardial Effusion: None OTHER FINDINGS: Upper abdomen: None Bony thorax: None Supraclavicular region: None Other: None IMPRESSION: No significant new or enlarging greater than [address] LUNG RAD AND CT CHEST RECOMMENDATION: Lung-Rad 2 Benign Appearance or Behavior: Continue annual sc reening with LDCT in 12 months. S Modifier (other clinically significant findings): None [facility], Workstation: [employer], 11/16/2024 11:36 AM
== END | disposition home or self-care (01) ==
LOC: RADCTMAIN 10:41
PROVIDERS: ATTEND Family Medicine
DX: Z12.2 Encounter for screening for malignant neoplasm of respiratory organs (principal); F17.210 Nicotine dependence, cigarettes, uncomplicated
CPT/HCPCS: 71271